=== PATIENT | female | born 1945 | race Caucasian/White ===

== ENCOUNTER 2024-09-10 11:35 | Emergency (ER) | payer MEDICARE ==
[~2024-09-10] VITALS: Ht 162.6 cm; Wt 80.0 kg
[2024-09-10] MEDS ORDERED: PRED10TA23 PO (12:28)
[2024-09-10] MEDS ORDERED: AZIT500T PO (12:28)
[2024-09-10 12:51] VITALS: BP 138/82; PULSE 97; TEMP 98.2; O2SAT 92
[2024-09-10 12:55] VITALS: RESP 16
== END 2024-09-10 12:56 | disposition home or self-care (01) ==
LOC: ER 11:36
DX: J22 Unspecified acute lower respiratory infection (principal); Z88.5 Allergy status to narcotic agent; Z79.52 Long term (current) use of systemic steroids
CPT/HCPCS: 71045; 99283